=== PATIENT | male | born 1990 | race Caucasian/White ===

== ENCOUNTER 2017-10-03 17:03 | Emergency (ER) | payer BC, OTHER ==
[2017-10-03 17:35] VITALS: BP 128/70; PULSE 89; RESP 18; TEMP 99.3
--- NOTE | 2017-10-03 17:47 | ED ---
ENT HPI - General Chief complaint: Dental/Oral Stated complaint: Tooth pain Time Seen by Provider: 10/03/17 17:36 Source: patient, RN notes reviewed, old records reviewed Mode of arrival: ambulatory Limitations: no limitations - History of Present Illness Initial comments: Patient is a 27-year-old male present emergency department today chief complaint of right lower dental pain. He reports he's been having the symptoms for the past week. He states he made an appointment with dentist but is not until the following week. He reports that he feels like his lower right wisdom tooth is pushing into his molars. Denies any fever or chills. Denies any significant swelling or difficulty swallowing. Patient denies any recent fever, chills, shortness of breath, chest pain, back pain, abdominal pain, nausea vomiting, numbness or tingling, dysuria or hematuria, constipation or diarrhea, headaches or visual changes, or any other current symptoms - Related Data Previous Rx's Medication Instructions Recorded Acetaminophen-Codeine 300-30mg 1 tab PO Q8H PRN #12 tablet 10/03/17 [Tylenol #3] Penicillin V Potassium [Pen Vee K] 500 mg PO QID #40 tablet 10/03/17 Allergies Allergy/AdvReac Type Severity Reaction Status Date / Time No Known Allergies Allergy Verified 04/28/14 07:50 Review of Systems ROS Statement: Those systems with pertinent positive or pertinent negative responses have been documented in the HPI. ROS Other: All systems not noted in ROS Statement are negative. Past Medical History Past Medical History: No Reported History History of Any Multi-Drug Resistant Organisms: None Reported Past Surgical History: No Surgical Hx Reported Past Psychological History: No Psychological Hx Reported Smoking Status: Never smoker Past Alcohol Use History: Occasional Past Drug Use History: None Reported General Exam - General Exam Comments Initial Comments: This is a 27-year-old male. No acute distress. General: Well appearing, well nourished, in no distress. Oriented x 3, normal mood and affect . Ambulating without difficulty. Skin: Good turgor, no rash, unusual bruising or prominent lesions Hair: Normal texture and distribution. HEENT: Head: Normocephalic, atraumatic, no visible or palpable masses, depressions, or scaring. Mouth: Mucous membranes moist, no mucosal lesions. Teeth/Gums: Poor dentition. Multiple dental caries noted. He has inflammation around tooth #31 and 30. No evidence of significant abscess. Does appear to be in a protruding tooth #32coming through the gum.. Pharynx: Mucosa non-inflamed, no tonsillar hypertrophy or exudate Neck: Supple, without lesions, or adenopathy, thyroid non-enlarged and non- tender Heart: No cardiomegaly or thrills; regular rate and rhythm, no murmur or gallop Lungs: Clear to auscultation and percussion Abdomen: Bowel sounds normal, no tenderness, organomegaly, masses, or hernia peripheral pulses intact Musculoskeletal: Normal gait and station. No misalignment, asymmetry, crepitation, defects, tenderness, masses, effusions, decreased range of motion, instability, atrophy or abnormal strength or tone in the head, neck, spine, ribs , pelvis or extremities. Neurologic: CN 2-12 normal. Sensation to pain, touch, and proprioception normal. DTRs normal in upper and lower extremities. No pathologic reflexes. Psychiatric: Oriented X3, intact recent and remote memory, judgment and insight , normal mood and affect. Limitations: no limitations Course Vital Signs 10/03/17 17:33 Temperature 99.3 F Pulse Rate 89 Respiratory 18 Rate Blood Pressure 128/70 O2 Sat by Pulse 97 Oximetry Medical Decision Making - Medical Decision Making 27-year-old male with history of right lower dental pain for the past 2 weeks. He has an appointment with the dentist next week. He has some inflammation around the gums 31 and 30. It appears that impacted wisdom tooth #32 is pushing on needs gums. Questionable possibility of gingivitis and early abscess at this time. We'll start patient on Pen-Vee K. Discussed appropriate follow-up. Discussed that he needs follow-up with his dentist in the next week and given a referral for oral surgery due to the nature of the tooth pain is wisdom tooth. Patient understands treatment plan will comply. Return parameters were discussed. Disposition Clinical Impression: Pain, dental Disposition: HOME SELF-CARE Condition: Good Instructions: Dental Abscess (ED), Toothache (ED) Additional Instructions: Patient advised follow-up with dental clinic oral surgeon. Salt water rinses, and Listerine rinses. Patient should return to the emergency department if any alarming signs or symptoms occur. [facility] [address] [place] [address] [phone] (existing clients only) For new clients: [phone] 1st consult: $50 (includes Xrays) Usually 30% less then private dentist for visits after. [employer] Have to pay $50 for Xrays anmd rest is covered. [phone] Prescriptions: Acetaminophen-Codeine 300-30mg [Tylenol #3] 1 tab PO Q8H PRN #12 tablet PRN Reason: Pain Penicillin V Potassium [Pen Vee K] 500 mg PO QID #40 tablet Referrals: None,Stated [Primary Care Provider] - 1-2 days Orion Peres DDS [STAFF PHYSICIAN] - 1-2 days Time of Disposition: 17:45
== END 2017-10-03 17:57 | disposition home or self-care (01) ==
LOC: EC 17:03
DX: K02.9 Dental caries, unspecified (principal)
CPT/HCPCS: 99283